=== PATIENT | male | born 1990 | race Caucasian/White ===

== ENCOUNTER 2025-02-01 21:08 | Emergency (ER) | payer MEDICAID, SELFPAY ==
--- OUTSIDE RECORDS SUMMARY | 2023-03-20 20:01 | XMS_ITS | Continuity of Care Document ---
Author Organization [facility] Address [address] [place] [address] Phone Care Team Providers Care Courtesy Van Driver Name Role Phone Niharika Alegre Unavailable Unavailable Allergies, Adverse Reactions, Alerts Substance Reaction Status Criticality Sulfa (Sulfonamide Antibiotics) Active No Information Penicillins Active No Information Medications Medication Instructions Dosage Effective Dates (start - stop) Status Comments ibuprofen 800 mg tablet take 1 tablet by oral route 3 times daily as needed with food - Active cetirizine 10 mg tablet take 1 tablet by mouth every daily at night - Active Tessalon Perles 100 mg capsule take 1 capsule by oral route 3 times every day as needed for cough - Active ProAir HFA 90 mcg/actuation aerosol inhaler inhale 2 puff by inhalation route every 4 - 6 hours as needed - Active Problems Condition Type Effective Dates (start - stop) Clini zack Status Comments No Known Problems Procedures Procedure Date Acute Detox Director Of Safety Acute Detox Director Of Safety ROUTINE VENIPUNCTURE Acute Detox Director Of Safety Advance Directives Directive Yes / No Effective Date File Name No Information Encounters Encounter Description Practice Location Reason(s) For Visit Diagnoses Date Provider Providers Copied on Encounter [facility], [address] [place] [address], [id number] , tel: [phone] [facility] Detox Cocaine dependence with withdrawalSedative, hypnotic or anxiolytic dependence with withdrawal, uncomplicatedNicotin e dependence, cigarettes, uncomplicatedOther seizures 3 Codey Bundy. [address], [place], [id number] , [place]. tel: [phone] [facility], [address], [place], [id number] , tel: [phone] [facility] Detox substance abuse (chief complaint) Cocaine dependence with withdrawalSedative, hypnotic or anxiolytic dependence with withdrawal, uncomplicatedNicotin e dependence, cigarettes, uncomplicatedOther seizures Sep-2 3 Quinten Moses. [address] [place], [address], [place]. tel: [phone] [facility], [address] [place] [address], [id number] , [place] tel: [phone] [facility] Detox Cocaine dependence with withdrawalSedative, hypnotic or anxiolytic dependence with withdrawal, uncomplicated 3 Quinten Moses. [address] [place], [address], [place]. tel: [phone] [facility], [address] [place] [address], [id number] , tel: [phone] [facility] Detox Sedative, hypnotic or anxiolytic dependence with withdrawal, uncomplicatedCocaine dependence with withdrawalOpioid dependence with withdrawal Feb- 3 Codey Bundy. [address] [place] [address], [id number] , . tel: [phone] [facility], [address] [place] [address], [id number] , tel: [phone] [facility] bronchitis (chief complaint)H BALBIR (chief complaint) Body mass index (BMI) 21.0-21.9, adultBronchitisHisto ry of intravenous drug abuseSmoker unmotivated to quit 8-201 8 Vanita Chen. [address] [place] [address], [id number] , . tel:+ [phone] Family History Family Member Type Diagnosis Age At Onset Father Problem (finding) Back issues Half sister (P) Problem (finding) Alive and well Mother Problem (finding) Scleraderma Sister Problem (finding) Alive and well Father Problem (finding) COPD Father Problem (finding) Alive and well Payers Payer name Insurance type Covered alliance party ID Micah browning(s) WILLIAM Donald Medicaid [id number] Social History Type Description Quantity Date Captured Comments Alcohol Use Details No Caffeine Use Details Unknown Tobacco Use Status Smoking Status No Information Sex Male Sexual Orientation Straight or heterosexual Gender Identity Male Vital Signs Date / Time: Height Weight BMI Pulse Rate Blood Pressure Temperature Respiratory Rate Body Surface Area Head Circumference Head Circ. Percentile Wt./Ariel. Percentile BMI percentile Pulse Ox Inhaled Ox 12:00 AM 80 /min 90/62 mm[Hg] 98.50 F 16 /min 100 % 4:00 AM 66 /min 94/62 mm[Hg] 98.20 F 16 /min 99 % 8:00 AM 69 /min 104/66 mm[Hg] 97.80 F 16 /min 99 % 21 % 12:00 PM 90 /min 110/70 mm[Hg] 98.60 F 16 /min 99 % Chief Complaint And Reason For Visit No Information Reason For Referral Reason For Referral No Information Plan Of Treatment Date Type Action Status Goal Tdap Vaccine. Due on 2022 due Goal PRAPARE ASSESSMENT. Due on due Goal Tdap. Due on due Goal RLP. Due on due Goal Influenza vaccine. Due on due Goal Depression screening. Due on due Goal Hep A. Due on du e Goal PRAPARE ASSESSMENT. Due on due Goal RLP. Due on due Goal Tdap Vaccine. Due on 2022 due Goal Tdap. Due on due Goal Influenza vaccine. Due on Se due Goal Depression screening. Due on due Goal RLP. Due on due Goal Influenza vaccine. Due on Se due Goal Depression screening. Due on due Goal Hep A. Due on du e Goal Tdap Vaccine. Due on 2022 due Goal PRAPARE ASSESSMENT. Due on S ep due Goal Tdap. Due on due Goal PRAPARE ASSESSMENT. Due on S ep due Goal Hep A. Due on du e Goal RLP. Due on due Goal Tdap Vaccine. Due on 2022 due Goal Tdap. Due on due Goal Influenza vaccine. Due on Se due Goal Depression screening. Due on due Goal Dietary management education , guidance, and counseling completed Goal Tobacco cessation counseling completed History Of Present Illness Encounter Date Complaint History Of Prese nt Illness substance abuse The symptoms are reported as being moderate. The symptoms occur constantly. He states the symptoms are acute and are of new onset. AoD Assessment reviewed. Client reports using 1 gram for Cocaine daily via incineration concurrent with 1.5mg Klonipin daily with HUMERA Yesterday. bronchitis The patient desc ribes the cough as hacking, moist and persistent. Associated symptoms include cough, fatigue, hoarseness, nasal congestion, post-nasal drainage, sinus pressure and sore throat. Pertinent negatives include fever. Additional information: Patient was in the ER over the weekend and diagnosed with Bronchitis. NDilts RMAHACKER- Noted above. Patient states was diagnosed with Bronchitis in ER over weekend, got a breathing treatment and cough medicine in e ER and sent home with inhaler and tessalon pearles. VANITA He lives at [facility], will be leaving next month. He is requesting Hep C testing as he has a history of IV drug use. He was tested in retirement but was never told any results. He is a current smoker. Has history of seasonal allergies and bronchitis. He states he is feeling better today than he did early in the week and last week. He mentions ongoing right knee pain. He was on percocet in the past, he does not want that but is asking for mobic. He has been taking ibuprofen 600-800mg maybe twice daily. Will order ibuprofen 800mg. May consider mobic in the future.Labs obtained in R arm on second attempt. [facility] and [facility] form faxed as directed to [phone], confirmation received. Patient states he thinks he may be getting out of [facility] in approx 1 month, informed him if he is welcome to continue services here but he thinks he will move back to [place]. -Kin CHARLES Functional Status Date Functional Assessmen t No Information Instructions Date Instruction Additional Infor mation Encourage PO fluids - Related to Sedative, hypnotic or anxiolytic dependence with withdrawal, uncomplicated Giving encouragement to exercise Related to Body mass index (BMI) 21.0-21.9, adult Dietary management e ducation, guidance, and counseling Related to Body mass index (BMI) 21.0-21.9, adult Assessments Type Assessment Date assessment Cocaine dependence with withdraw al assessment Sedative, hypnotic o r anxiolytic dependence with withdrawal, uncomplicated assessment Nicotine dependence, cigarettes, uncomplicated assessment Other seizures Patient Care Teams Name Effective Dates (start - stop) Status Members No Information
--- OUTSIDE RECORDS SUMMARY | 2023-10-06 10:30 | XMS_ITS ---
Author Organization [facility] Address [address] [place] [address] Care Team Providers Care Director Hydrogen Storage Engineering Name Role Phone Michelle Noble Primary Care Provider [phone] Allergies Allergen (clinical drug ingredient) Drug/Non Drug Allergy documented on EMR Reaction Allergy Type Onset Date Status buspirone busPIRone HCl psychomotor agitation Drug Allergy Active mirtazapine Mirtazapine Restless Legs Drug Allergy Active Penicillin Unknown Drug Allergy Active Substance with sulfonamide structure and antibacterial mechanism of action (substance) Sulfa Antibiotics Unknown Drug Allergy Active REASON FOR VISIT Patient is here today for a 6 week medication follow up and Aristada injection. He has brought his medication with him. JESSICA Medications Medication SIG (Take, Route, Frequency, Duration) Notes Start Date End Date Status Suboxone 8-2 MG 1 film under the tongue and allow to dissolve Sublingual Once a day Active Pantoprazole Sodium 40 MG 1 tablet Orally Once a day Active chlorproMAZINE HCl 10 MG 2 tabs tonight, then increase by 1 tab per night up to 50mg Orally as directed 02/23/2023 Not-Taking SEROquel 100 MG 1 tablet daily at 7 pm and 1 tablet daily at bedtime Orally Once a day 06/05/2023 Active Aristada 882 MG/3.2ML INJECT 1 DOSE INTRAMUSCULARLY ONCE EVERY MONTH - EVERY 30 DAYS Active Meloxicam 15 MG 1 tablet Orally kerry y PRN Active [place] Carbonate 300 MG 1 cap twice daily x 5 days then 1 cap three times daily Orally as directed; Duration: 30 days BEGIN AFTER BEING NOTIFIED BY OFFICE THAT LABS ARE NORMAL 06/08/2023 Not-Taking Divalproex Sodium ER 500 MG Take 1 tablet by mouth twice daily Orally Not-Taking Social History Tobacco Use: Social History Observation Description Date Details (start date - stop date) Never Smoker NA - NA Sex Assigned At : Social History Observation Description Sex Assigned At Male Tobacco Screen: Question Answer Notes Are you a: current smoker How often do you smoke cigarettes? every day How many cigarettes a day do you smoke? -20 Are you interested in quitting? Not ready to catalina t Alcohol Screening: Question Answer Notes Did you have a drink containing alcohol in the p ast year? No Points 0 Interpretation Negative Depression Screening (PHQ-9): Question Answer Notes Little interest or pleasure in doing things Nearly every day Feeling down, depressed, or hopeless Nearly ever y day Trouble falling or staying a sleep, or sleeping too much Nearly every day Feeling tired or having little energy Nearly checo ry day Poor appetite or overeating Nearly every day Feeling bad about yourself-o r that you are a failure or have let yourself or your family down Nearly every day Trouble concentrating on thi ngs, such as reading the newspaper or watching television Nearly every day Moving or speaking so slowly that other people could have noticed. Or the opposite being so fidgety or restless that you have been moving around a lot more than usual Nearly every day Thoughts that you would be b stu off , or of hurting yourself in some way Several days(Consider Suicide Assessment Risk) Total Score 25 Intepretation Severe Depression Tobacco Control (Standard) Question Answer Notes Tobacco use: Nonsmoker Encounters Encounter Location Date Provider Diagnosis [facility] [address] [place] [address] 10/06/2023 Michelle Noble Plan Of Treatment No Information Progress Notes * DORINDA CALDWELL JrDOB:1989 (34 yo M)Acc No.[id number]:10/06/2023 Behavioral Health Patient: DORINDA VILLA Jr Appointment Provider: Orlin Noble :1990 A ge:33 Y S ex:Male Date:10/06/2023 Address:[address] [place], [place] [id number] Subjective: * Chief Complaints: * 1 . Patient is here today for a 6 week medication follow up and Aristada injection. He has brought his medication with him. JESSICA. * Medical History: T hyroid disease, Bipolar, Restless Leg Syndrome, CVA, 2013.. * Surgical History: k nee surgery x 2 , partial thyroidectomy . * Hospitalization/Major Diagno stic Procedure: Bianca bernal Past Hospitalization. * Family History: M other: depression, anxiety. 1 sister(s) - healthy. . * Social History: G eneral: T obacco Screen A re you a: c urrent smoker H ow often do you smoke cigarettes? e very day H ow many cigarettes a day do you smoke? 1 1-20 A re you interested in quitting? N ot ready to quit Alcohol Screening D id you have a drink containing alcohol in the past year? N o P oints 0 I nterpretation N egative Depression Screening (PHQ-9) L ittle interest or pleasure in doing things?Nearly every day F eeling down, depressed, or hopeless N early every day T rouble falling or staying asleep, or sleeping too much N early every day F eeling tired or having little energy N early every day P oor appetite or overeating N early every day F eeling bad about yourself-or that you are a failure or have let yourself or your family down N early every day T rouble concentrating on things, such as reading the newspaper or watching television N early every day M oving or speaking so slowly that other people could have noticed. Or the opposite being so fidgety or restless that you have been moving around a lot more than usual N early every day T houghts that you would be better off , or of hurting yourself in some way S everal days(Consider Suicide Assessment Risk) T otal Score 2 5 I ntepretation S evere Depression Transition of Care E R/UC/hospital since last office visit? N o Behaviors affecting health P oor/Risky Behaviors: Bianca bernal- Substance abuse/mental health issues of patient/family P atient - O ther has medical marijuana card Social/Support Concerns P atient: Y es Ability to understand healthcare/treatment P atient: G ood T obacco Use: T obacco Control (Standard) T obacco use: N onsmoker * Medications: T aking Pantoprazole Sodium 40 MG Tablet Delayed Release 1 tablet Orally Once a day , Taking Suboxone 8-2 MG Film 1 film under the tongue and allow to dissolve Sublingual Once a day , Taking Meloxicam 15 MG Tablet 1 tablet Orally daily PRN , Taking SEROquel 100 MG Tablet 1 tablet daily at 7 pm and 1 tablet daily at bedtime Orally Once a day , Taking Aristada 882 MG/3.2ML Prefilled Syringe INJECT 1 DOSE INTRAMUSCULARLY ONCE EVERY MONTH - EVERY 30 DAYS , Not-Taking/PRN [place] Carbonate 300 MG Capsule 1 cap twice daily x 5 days then 1 cap three times daily Orally as directed , Notes to Pharmacist: BEGIN AFTER BEING NOTIFIED BY OFFICE THAT LABS ARE NORMAL, Not-Taking/PRN Divalproex Sodium ER 500 MG Tablet Extended Release 24 Hour Take 1 tablet by mouth twice daily Orally , Not-Taking/PRN chlorproMAZINE HCl 10 MG Tablet 2 tabs tonight, then increase by 1 tab per night up to 50mg Orally as directed * Allergies: P enicillin: Allergy, Sulfa Antibiotics: Allergy, busPIRone HCl: psychomotor agitation - Side Effects - Criticality High, Mirtazapine: Restless Legs - Side Effects - Criticality Low. Objective: * Vitals: Assessment: Plan: * Treatment: * Images: * Electronic signature of ANUSHA Lua FNP on 02/01/2025 at 09:16 PM EDT Sign off status: Pending * Appointment Provider: Orlin Noble Date: 0 10/06/2023 Generated for Sabine milan/Calista/Chelsi on: 0 02/01/2025 09:16 PM EDT
[2025-02-01 21:16] VITALS: BP 117/81; PULSE 65; TEMP 36.9; O2SAT 100; BMI 21.3
--- OUTSIDE RECORDS SUMMARY | 2025-02-01 21:16 | XMS_ITS | Clinical Summary ---
Author Organization [facility] Address [address] [phone] Phone Care Team Providers Care Medtronics Technician Name Role Phone Cem Hampton MD Primary Care Provider Social History Tobacco Use Types Packs/Day Years Used Date Smoking Tobacco: Never Assessed Sex and Gender Information Value Date Recorded Sex Assigned at Not on file Legal Sex Male 5:21 AM EST Gender Identity Not on file Sexual Orientation Not on file Plan of Treatment Not on file Care Teams Medtronics Technician Relationship Specialty Start Date End Date Cem Hampton MD PCP - General 11/16/18
--- OUTSIDE RECORDS SUMMARY | 2025-02-01 21:16 | XMS_ITS | Encounter Summary ---
Author Organization [facility] [employer] s tem Address [id number] [address] [place] [address] Care Team Providers Care Director Of Customer Service Name Role Phone Hugo Zendejas Primary Care Provider [phone] Encounter Details Date Type Department Care Team (Late st Contact Info) Description 12/18/2023 Orders Only [facility] Internal Medicine - Family Medicine [address] [place] [id number] External, Scanning Provider Social History Tobacco Use Types Packs/Day Years Used Date Smoking Tobacco: Every Day Cigarettes 1 12 Smokeless Tobacco: Never Alcohol Use Standard Drinks/Week Comments No 0 (1 standard drink = 0.6 oz pur e alcohol) AUDIT-C Answer Date Recorded Frequency of Alcohol Consumption Never 03/24/2018 Average Number of Drinks Not on file 018 Frequency of Binge Drinking Not on file 02/28 PHQ-2 Answer Date Recorded Total Score 0 10/28/2023 Childcare Answer Date Recorded Childcare Unknown 12/01/2018 Employment Answer Date Recorded Employment Unknown 12/01/2018 Hunger Screening Answer Date Recorded Within the past 12 months we worried whether our food would run out before we got money to buy more. Never True 12/15/2023 Within the past 12 months th e food we bought just didn't last and we didn't have money to get more. Never True 12/15/2023 Purpose - Life Answer Date Recorded Purpose and direction in life Unknown Sex and Gender Information Value Date Recorded Sex Assigned at Male 07/10/2022 4:43 PM EST Legal Sex Male 11:40 AM EDT Gender Identity Male 07/10/2022 4:43 PM EST Sexual Orientation Straight 07/10/2022 4: 43 PM EST documented as of this encounter Plan of Treatment Not on file documented as of this encounter Procedures Procedure Name Priority Date/Time Associated Diagnosis Comments NERVE CONDUCTION STUDY Routine 12/17/2023 12:32 PM EDT documented in this encounter Visit Diagnoses Not on filedocumented in this encounter Additional Health Concerns Assessment Noted Time PHQ-9 Depression Total Score: 0 10/28/19 1:49 PM EDT A Body Mass Index follow-up plan has been documented for the patient 02/02/2020 3:18 PM EDT documented as of this encounter Care Teams Director Of Customer Service Relationship Specialty Start Date End Date Hugo Zendejas DO [address] [place] [address] PCP - General Internal Medicine 04/14/23 documented as of this encounter
--- OUTSIDE RECORDS SUMMARY | 2025-02-01 21:16 | XMS_ITS | Encounter Summary ---
Author Organization [employer] s tem Address [id number] [address] [place] [address] Care Team Providers Care Counseling Center Manager Name Role Phone Hugo Zendejas Primary Care Provider [phone] Encounter Details Date Type Department Care Team (Late st Contact Info) Description 10/07/2024 Telephone [facility] Internal [facility] - Family Medicine [address] [place] [id number] Lee Frazier CMA Social History Tobacco Use Types Packs/Day Years [...] PHQ-2 Answer Date Recorded Total Score 0 04/07/2024 Childcare Answer Date Recorded Childcare Unknown 12/01/2018 Employment Answer Date Recorded Employment Unknown 12/01/2018 Hunger Screening Answer Date Recorded Within the past 12 months we worried whether our food would run out before we got money to buy more. Never True 04/07/2024 Within the past 12 months th e food we bought just didn't last and we didn't have money to get more. Never True 04/07/2024 Purpose - Life Answer Date Recorded Purpose and direction in life Unknown Sex and Gender Information Value Date Recorded Sex Assigned at Male 07/10/2022 4:43 PM EST Legal Sex Male 11:40 AM EDT Gender Identity Male 07/10/2022 4:43 PM EST Sexual Orientation Straight 07/10/2022 4: 43 PM EST documented as of this encounter Miscellaneous Notes * Telephone Encounter - Lee Frazier CMA - 10/07/2024 1:29 PM EDT Back pain recheck and Neuropathy recheck documented in this encounter Plan of Treatment Not on file documented as of this encounter Visit Diagnoses Not on filedocumented in this encounter Additional Health Concerns Assessment Noted Time PHQ-9 Depression Total Score: 0 04/07/20 24 3:00 PM EDT A Body Mass Index follow-up plan has been documented for the patient 02/02/2020 3:18 PM EDT documented as of this encounter Care Teams Counseling Center Manager Relationship Specialty Start Date End Date Hugo Zendejas DO [address] [place] [address] PCP - General Internal Medicine 04/14/23 documented as of this encounter
--- OUTSIDE RECORDS SUMMARY | 2025-02-01 21:16 | XMS_ITS | Encounter Summary ---
Author Organization [employer] s tem Address [id number] [address] [place] [address] Care Team Providers Care Lining Maker Hand Name Role Phone Hugo Zendejas Primary Care Provider [phone] Encounter Details Date Type Department Care Team (Late st Contact Info) Description 10/21[facility] [address] [place] [phone] Lee Frazier CMA Social History Tobacco Use [...] Telephone Encounter - Lee Frazier CMA - 10/21/2024 12:32 PM EDT I called pt for a recheck back pain and neuropathy. documented in this encounter Plan of Treatment Not on file documented as of this encounter Visit Diagnoses Not on filedocumented in this encounter Additional Health Concerns Assessment Noted Time PHQ-9 Depression Total Score: 0 04/07/20 24 3:00 PM EDT A Body Mass Index follow-up plan has been documented for the patient 02/02/2020 3:18 PM EDT documented as of this encounter Care Teams Lining Maker Hand Relationship Specialty Start Date End Date Hugo Zendejas DO [address] [place] [address] PCP - General Internal Medicine 04/14/23 documented as of this encounter
--- OUTSIDE RECORDS SUMMARY | 2025-02-01 21:16 | XMS_ITS | Clinical Summary ---
Author Organization [facility] Address [address] [place] [address] Care Team Providers Care Rebar Bender Name Role Phone Hugo Zendejas MD Primary Care Provider [phone] Allergies Active Allergy Reactions Criticality Noted Date Comments Penicillins Anaphylaxis,Hives,Un kno wn High 12/19/2017 Sulfa Antibiotics Anaphylaxis,Unknown High 5 Other Reaction(s): Other (See Comments) Medications OLANZapine (ZyPREXA) 7.5 MG tablet 1 (one) time each day at the same time Active Social History Tobacco Use Types Packs/Day Years Used Date Smoking Tobacco: Never Assessed Sex and Gender Information Value Date Recorded Sex Assigned at Not on file Legal Sex Male 9:31 PM EDT Gender Identity Not on file Sexual Orientation Not on file Last Filed Vital Signs Vital Sign Reading Time Taken Comments Blood Pressure 122/70 07/11/2020 3:39 AM EST Pulse - - Temperature - - Respiratory Rate - - Oxygen Saturation - - Inhaled Oxygen Concentration - - Weight 81.6 kg (180 lb) 07/11/2020 3:39 AM EST Height 172.7 cm (5' 8 ) 04/24/2020 12:00 PM EDT Body Mass Index 27.37 04/24/2020 12:00 PM EDT Plan of Treatment Not on file Insurance [employer] [place] Care Teams Rebar Bender Relationship Specialty Start Date End Date Hugo Zendejas MD PCP - General Internal Medicine 12/09/23
--- OUTSIDE RECORDS SUMMARY | 2025-02-01 21:16 | XMS_ITS | Patient Health Record ---
Author Organization [employer] Address [address] [place] [address] Care Team Providers Care Bleaching Supervisor Name Role Phone Michelle Noble Primary Care Provider Allergies Allergen (clinical drug ingredient) Drug/Non Drug Allergy documented on EMR Reaction Allergy Type Onset Date Status buspirone busPIRone HCl psychomotor agitation Drug Allergy Active mirtazapine Mirtazapine Restless Legs Drug Allergy Active Penicillin Unknown Drug Allergy Active Substance with sulfonamide structure and antibacterial mechanism of action (substance) Sulfa Antibiotics Unknown Drug Allergy Active Reason For Referral No Information Medications Medication SIG (Take, Route, Frequency, Duration) Notes Start Date End Date Status Suboxone 8-2 MG 1 film under the tongue and allow to dissolve Sublingual Once a day Active Meloxicam 15 MG 1 tablet Orally kerry y PRN Active Pantoprazole Sodium 40 MG 1 tablet Orally Once a day Active chlorproMAZINE HCl 10 MG 2 tabs tonight, then increase by 1 tab per night up to 50mg Orally as directed 02/23/2023 Not-[address] [facility] [place] Carbonate 300 MG 1 cap twice daily x 5 days then 1 cap three times daily Orally as directed; Duration: 30 days BEGIN AFTER BEING NOTIFIED BY OFFICE THAT LABS ARE NORMAL 06/08/2023 Not-Taking Divalproex Sodium ER 500 MG Take 1 tablet by mouth twice daily Orally Not-Taking SEROquel 100 MG 1 tablet daily at 7 pm and 1 tablet daily at bedtime Orally Once a day 06/05/2023 Active Aristada 882 MG/3.2ML INJECT 1 DOSE INTRAMUSCULARLY ONCE EVERY MONTH - EVERY 30 DAYS Active Social History Tobacco Use: Social History Observation Description Date Details (start date - stop date) Never Smoker NA - NA Sex Assigned At : Social History Observation Description Sex Assigned At Male Tobacco Screen: Question Answer Notes Are you a: current smoker How often do you smoke cigarettes? every day How many cigarettes a day do you smoke? 11-20 Are you interested in quitting? 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 (I69.319) Active confirmed Problem Generalized anxiety disorder (24452427) Anxiety, generalized (F41.1) Active confirmed Plan Of Treatment No Information Insurance Providers Payer Name Payer Address Payer Phone Subscriber Number Group Number Insured Name Patient Relationship to Insured Coverage Start Date Coverage End Date [facility] [address] [place] [address] [id number] DORINDA CALDWELL Self - patient is the insured 3 [employer] [facility] [address] [place] [address] [id number] DORINDA CALDWELL Self - patient is the insured 3 [employer] [facility] Medicaid-t ermed 22 [address] [place] [address] [id number] DORINDA CALDWELL Self - patient is the insured 1 3 [employer] MEDICAID [employer] after [employer]AMOUNT- termed 22 [address] [place] [address] [id number] DORINDA CALDWELL Self - patient is the insured 1 3 [employer] [place] Medicaid [address] [place] [address] [id number] DORINDA CALDWELL Self - patient is the insured 3 [employer] [facility] [address] [place] [address] [id number] DORINDA CALDWELL Self - patient is the insured 3 Medical (General) History Medical History History ICD Code thyroid disease bipolar Restless Leg Syndrome CVA, 2013. Surgical History Surgery Date(Month/Year) knee surgery x 2 partial thyroidectomy
--- OUTSIDE RECORDS SUMMARY | 2025-02-01 21:16 | XMS_ITS | Encounter Summary ---
Author Organization [facility] tem Address [id number] [address] [place] [address] Care Team Providers Care Jailkeeper Name Role Phone Hugo Zendejas DO Primary Care Provider [phone] Encounter Details Date Type Department Care Team (Late st Contact Info) Description 12/10/2023 Orders Only [facility] - Family Medicine [address] [place] [address] Hugo Zendejas DO [address] [place] [address] Peripheral polyneuropathy; Lumbar radiculopathy Social History Tobacco Use Types Packs/Day Years [...] got money to buy more. Never True 10/28/2023 Within the past 12 months th e food we bought just didn't last and we didn't have money to get more. Never True 10/28/2023 Purpose - Life Answer Date Recorded Purpose [...] Procedure Name Priority Date/Time Associated Diagnosis Comments EMG WITH NCV Routine 12/09/2023 1:09 PM EDT Peripheral polyneuropathy Lumbar radiculopathy documented in this encounter Results * EMG (12/09/2023 1:09 PM EDT) us Hugo Zendejas DO NEUROLOGY ORDERABLES Final Resul t MANUALLY TRANSCRIBED RESULTS documented in this encounter Visit Diagnoses Diagnosis Peripheral polyneuropathy Lumbar radiculopathy Thoracic or lumbosacral neuritis or radiculitis, unspecified documented in this encounter Additional Health Concerns Assessment Noted Time PHQ-9 Depression Total Score: 0 10/28/19 24 1:49 PM EDT A Body Mass Index follow-up plan has been documented for the patient 02/02/2020 3:18 PM EDT documented as of this encounter Care Teams Jailkeeper Relationship Specialty Start Date End Date Hugo Zendejas DO [address] [id number] PCP - General Internal Medicine 04/14/23 documented as of this encounter
--- OUTSIDE RECORDS SUMMARY | 2025-02-01 21:16 | XMS_ITS | Encounter Summary ---
Author [facility] Address [id number] [address] [place] [address] Care Team Providers Care Yard Loader Operator Name Role Phone Hugo Zendejas DO Primary Care Provider [phone] Reason for Referral * Diagnostic Imaging (Routine) - Closed Specialty Diagnoses / Procedures Referred By Sotero samayoa Referred To Contact Radiology Diagnoses Recent unexplained weight loss Procedures CT abdomen and pelvis with contrast Hugo Zendejas DO [address] [place] [address] Phone: tel: fax: Referral ID Status Reason Start Date Expiration Date Visits Re quested Visits Authorized [id number] Closed 04/16/2023 04/15/2024 1 1 Encounter Details Date Type Department Care Team (Late st Contact Info) Description 04/16/2023 Orders Only [facility] - Family Medicine [address] [place] [address] Hugo Zendejas DO [address] [place] [address] Recent unexplained weight loss (Primary Dx); Pancreatic insufficiency Social History Tobacco Use Types Packs/Day Years Used Date Smoking Tobacco: Every Day Cigarettes Smokeless Tobacco: Never Alcohol Use Standard Drinks/Week Comments No 0 (1 standard drink = 0.6 oz pur e alcohol) AUDIT-C Answer Date Recorded Frequency of Alcohol Consumption Never 03/24/2018 Average Number of Drinks Not on file 018 Frequency of Binge Drinking Not on file 02/28 PHQ-2 Answer Date Recorded Total Score 23 04/14/2023 Childcare Answer Date Recorded Childcare Unknown 12/01/2018 Employment Answer Date Recorded Employment Unknown 12/01/2018 Purpose - Life Answer Date Recorded Purpose [...] on file documented as of this encounter Results * Pancreatic elastase, fecal (05/18/2023 12:30 PM EST) Pancreat elastase st See Below 05/20/2023 9:35 PM EST [facility] Comment: NOTE TEST RESULT FLAG UNIT REF.RANGE Elastase-1 Concentration >800 ug/g >=200 Interpretation: <100 ug/g: Severe Exocrine Pancreatic Insufficiency 100-199 ug/g: Mild to Moderate Exocrine Pancreatic Insufficiency >=200 ug/g: Normal Elastase Interpretation Normal Normal Test Performed By: [facility] [address] [place] [address] Pharmacy Manager: Johnson Cortes III, M.D. [facility] #[id number]^ Feces / Unknown 05/18/2023 1 2:30 PM EST 05/18/2023 9:03 PM EST us Hugo Zendejas DO BODY FLUIDS AND STOOLS ORDERABLE S Final Result [address], [facility] [place] [address] * CT abdomen and pelvis with contrast (05/06/2023 3:43 PM EST) Anatomical Region Laterality Modality Body, Abdomen, Body Covera N/A Compu russ Tomography 05/07/2023 5:48 AM EST Narrative 05/07/2023 5:50 AM EST History: Unintentional weight loss Technique: Contiguous axial images through the abdomen pelvis were obtained following the administration of intravenous contrast material. Automated exposure control was utilized. Comparison: 02/27/2020 Findings: There is no evidence of any hepatic, splenic, adrenal renal, pancreatic, or gallbladder abnormalities. No abdominal or retroperitoneal masses or adenopathy are seen. No pelvic masses, adenopathy, or fluid collections are identified. No acute osseous abdomen as are seen. Limited images of the lung bases are unremarkable. Impression: Normal CT abdomen and pelvis. All CT scans at this facility use dose modulation, iterative reconstruction, and/or weight based dosing when appropriate to reduce radiation dose to as low as reasonably achievable Finalized by Cem Blackwell MD on 05/07/2023 5:50 AM Procedure Note Cem Blackwell MD - 05/07/2023 History: Unintentional weight loss Technique: Contiguous axial images through the abdomen pelvis wereobtained following the administration of intravenous contrast material.Automated exposure control was utilized. Comparison: 02/27/2020 Findings: There is no evidence of any hepatic, splenic, adrenal renal,pancreatic, or gallbladder abnormalities. No abdominal or retroperitonealmasses or adenopathy are seen. No pelvic masses, adenopathy, or fluidcollections are identified. No acute osseous abdomen as are seen. Limited images of the lung bases are unremarkable. Impression: Normal CT abdomen and pelvis. All CT scans at this facility use dose modulation, iterativereconstruction, and/or weight based dosing when appropriate to reduceradiation dose to as low as reasonably achievable Finalized by Cem Blackwell MD on 05/07/2023 5:50 AM Hugo Zendejas DO [facility] CT ORDERABLES Final Result documented in this encounter Visit Diagnoses Diagnosis Recent unexplained weight loss- Primary Pancreatic insufficiency Other specified disease of pancreas Recent unexplained weight loss documented in this encounter Additional Health Concerns Assessment Noted Time PHQ-9 Depression Total Score: 23 023 11:54 AM EDT A Body Mass Index follow-up plan has been documented for the patient 02/02/2020 3:18 PM EDT documented as of this encounter Care Teams Yard Loader Operator Relationship Specialty Start Date End Date Hugo Zendejas DO [address] [id number] PCP - General Internal Medicine 04/14/23 documented as of this encounter
--- OUTSIDE RECORDS SUMMARY | 2025-02-01 21:16 | XMS_ITS | Encounter Summary ---
Author Organization [facility] tem Address [id number] [address] [place] [address] Care Team Providers Care Crewman Main Battle Tank Name Role Phone Hugo Zendejas DO Primary Care Provider [phone] Encounter Details Date Type Department Care Team (Late st Contact Info) Description 04/15/2023 Orders Only [facility] - Family Medicine [address] [place] [address] Hugo Zendejas DO [address] [place] [address] Hypercalcemia (Primary Dx) Social History Tobacco Use Types Packs/Day Years [...] documented as of this encounter Visit Diagnoses Diagnosis Hypercalcemia- Primary documented in this encounter Additional Health Concerns Assessment Noted Time PHQ-9 Depression Total Score: 23 023 11:54 AM EDT A Body Mass Index follow-up plan has been documented for the patient 02/02/2020 3:18 PM EDT documented as of this encounter Care Teams Crewman Main Battle Tank Relationship Specialty Start Date End Date Hugo Zendejas DO [address] [place] [address] PCP - General Internal Medicine 04/14/23 documented as of this encounter
--- OUTSIDE RECORDS SUMMARY | 2025-02-01 21:16 | XMS_ITS | Encounter Summary ---
Author Organization [facility] [facility] tem Address [facility][id number] [address] [place] [address] Care Team Providers Care Loss Prevention Guard Name Role Phone Hugo Zendejas Primary Care Provider [phone] Encounter Details Date Type Department Care Team (Late st Contact Info) Description 07/05/2020 Orders Only [facility] [address] [place] [phone] Rosmery Posadas, TAX DIRECTOR-[facility] [address] [place] [address] Social History Tobacco Use Types Packs/Day Years [...] 02/28 PHQ-2 Answer Date Recorded Total Score 27 02/27/2020 Childcare Answer Date Recorded Childcare Unknown 12/01/2018 Employment Answer Date Recorded Employment Unknown 12/01/2018 Sex and Gender Information Value Date Recorded [...] Assessment Noted Time PHQ-9 Depression Total Score: 27 020 4:00 PM EDT A Body Mass Index follow-up plan has been documented for the patient 02/02/2020 3:18 PM EDT documented as of this encounter Care Teams Loss Prevention Guard Relationship Specialty Start Date End Date Hugo Zendejas DO [address] [place] [address] PCP - General Internal Medicine 04/14/23 documented as of this encounter
--- OUTSIDE RECORDS SUMMARY | 2025-02-01 21:16 | XMS_ITS | Encounter Summary ---
Author Organization [employer] tem Address [facility][id number] [address] [place] [address] Care Team Providers Care Adjunct Physical Education Instructor Name Role Phone Hugo Zendejas DO Primary Care Provider [phone] Reason for Visit * Reason Comments Med Refill Encounter Details Date Type Department Care Team (Late st Contact Info) Description 12/28/2023 Refill [facility] - Family Medicine [address] [place] [address] Hugo Zendejas DO [address] [place] [address] Vitamin D deficiency Social History Tobacco Use Types Packs/Day Years [...] encounter Miscellaneous Notes * Telephone Encounter - Hugo Zendejas DO - 12/28/2023 12:34 PM EDT No longer prescribed documented in this encounter Plan of Treatment Not on file documented as of this encounter Visit Diagnoses Diagnosis Vitamin D deficiency documented in this encounter Additional Health Concerns Assessment Noted Time PHQ-9 Depression Total Score: 0 10/28/19 24 1:49 PM EDT A Body Mass Index follow-up plan has been documented for the patient 02/02/2020 3:18 PM EDT documented as of this encounter Care Teams Adjunct Physical Education Instructor Relationship Specialty Start Date End Date Hugo Zendejas DO [address] [id number] PCP - General Internal Medicine 04/14/23 documented as of this encounter
--- OUTSIDE RECORDS SUMMARY | 2025-02-01 21:16 | XMS_ITS | Encounter Summary ---
Author Organization [facility] Address [facility][id number] [address] [place] [address] Care Team Providers Care Artifacts Conservator Name Role Phone Hugo Zendejas Primary Care Provider Reason for Visit * Reason Comments Med Refill Encounter Details Date Type Department Care Team (Late st Contact Info) Description 12/28/2018 Refill [facility] [address] [place] [phone] Rosmery Posadas, SANITARY CHEMIST-[facility] [address] [place] [address] Social History Tobacco Use Types Packs/Day Years Used Date Smoking Tobacco: Every Day Cigarettes Smokeless Tobacco: Never Alcohol Use Standard Drinks/Week Comments No 0 (1 standard drink = 0.6 oz pur e alcohol) AUDIT-C Answer Date Recorded Frequency of Alcohol Consumption Never 03/24/2018 Average Number of Drinks Not on file 018 Frequency of Binge Drinking Not on file 02/28 PHQ-2 Answer Date Recorded PHQ-2 Score 0 10/20/2018 Childcare Answer Date Recorded Childcare Unknown 12/01/2018 [...] Noted Time PHQ-9 Depression Total Score: 0 10/21/19 19 2:00 PM EDT documented as of this encounter Care Teams Artifacts Conservator Relationship Specialty Start Date End Date Hugo Zendejas DO [address] [place] [address] PCP - General Internal Medicine 04/14/23 documented as of this encounter
--- OUTSIDE RECORDS SUMMARY | 2025-02-01 21:16 | XMS_ITS | Encounter Summary ---
Author Organization [employer] tem Address [id number] [address] [place] [address] Care Team Providers Care Coal Passer Name Role Phone Hugo Zendejas Primary Care Provider [phone] Encounter Details Date Type Department Care Team (Late st Contact Info) Description 09/26/2024 [facility] [address] [place] [address] Lee Frazier CMA Social History Tobacco Use [...] Telephone Encounter - Lee Frazier CMA - 09/26/2024 9:56 AM EDT ----- Message from Hugo Zendejas DO sent at 04/07/2024 6:00 PM EDT ----- Back pain recheck. Neuropathy recheck documented in this encounter Plan of Treatment Not on file documented as of this encounter Visit Diagnoses Not on filedocumented in this encounter Additional Health Concerns Assessment Noted Time PHQ-9 Depression Total Score: 0 04/07/20 3:00 PM EDT A Body Mass Index follow-up plan has been documented for the patient 02/02/2020 3:18 PM EDT documented as of this encounter Care Teams Coal Passer Relationship Specialty Start Date End Date Hugo Zendejas DO [address] [place] [address] PCP - General Internal Medicine 04/14/23 documented as of this encounter
--- OUTSIDE RECORDS SUMMARY | 2025-02-01 21:16 | XMS_ITS | Encounter Summary ---
Author Organization [facility] [employer] [facility] Address [facility][id number] [address] [place] [address] Care Team Providers Care Warp Worker Name Role Phone Hugo Zendejas Primary Care Provider [phone] Encounter Details Date Type Department Care Team (Late st Contact Info) Description 07/11/2020 Orders Only [facility] [address] [place] [address] Rosmery Posadas, POULTRY FEED SUPERVISOR-ROVING INSPECTOR [address] [place] [address] Social History Tobacco Use Types Packs/Day Years [...] documented as of this encounter Care Teams Warp Worker Relationship Specialty Start Date End Date Hugo Zendejas DO [address] [place] [address] PCP - General Internal Medicine 04/14/23 documented as of this encounter
--- OUTSIDE RECORDS SUMMARY | 2025-02-01 21:16 | XMS_ITS | Clinical Summary ---
Author Organization [employer] tem Address [id number] [address] [place] [address] Care Team Providers Care Figure Model Name Role Phone Hugo Zendejas Primary Care Provider [phone] Allergies Active Allergy Reactions Criticality Noted Date Comments Buspirone Hcl Other (See Comments) 04/06/2023 Mirtazapine Other (See Comments) 04/06/2023 Penicillin Hives 04/06/2023 Penicillins Anaphylaxis High 03/24/2018 Sulfa (Sulfonamide Antibiotics) Anaphylaxis,Other (See Comments) High 07/12/2014 Medications naloxone (NARCAN) 4 mg/actuation spray,non-aeros ol nasal sprayIndication s:Opioid abuse, in remission ([facility]) Administer 1 spray (4 mg total) into alternating nostrils as needed for opioid reversal. 4 Active meloxicam (MOBIC) 15 mg tabletIndicatio ns:Laceration of left thumb with tendon involvement, initial encounter Take 1 tablet (15 mg total) by mouth in the morning. 4 Active gabapentin (NEURONTIN) 800 mg tablet Take 1 tablet (800 mg total) by mouth. 4 Active ARISTADA 882 mg/3.2 mL suspension,exte nded rel syring injection 4 Active clonazePAM (KlonoPIN) 2 mg tablet Take 1 tablet (2 mg total) by mouth. 4 Active dextroamphetami ne-amphetamine (ADDERALL) 10 mg tablet 4 Active ergocalciferol (DRISDOL) 1,250 mcg (50,000 unit) capsule Take 1 capsule (50,000 Units total) by mouth once a week. 4 Active Active Problems Problem Noted Date Diagnosed Date Post-traumatic stress disorder, chronic 05/13/20 23 Residual cognitive deficit a s late effect of cerebrovascular accident 04/14/2023 Severe mixed bipolar I disorder without psychoti c features 04/14/2023 Insomnia 04/14/2023 Post-surgical hypothyroidism 03/30/2019 History of stroke 02/25/2019 History of seizure 02/25/2019 Generalized anxiety disorder 10/20/2018 Major depression 10/20/2018 Opioid abuse, in remission 10/20/2018 Resolved Problems Problem Noted Date Diagnosed Date Resolved Date Seizures 04/12/2019 04/14/2023 Overview (04/12/2019): current seizures Thyroid nodule 02/25/2019 03/30/2019 Cocaine abuse 10/20/2018 05/08/2020 Other, mixed, or unspecified nondependent drug abuse, in remission 10/20/2018 05/08/2020 Immunizations Immunization Administration Dates Next Due DTP 12/22/1994, 1,1989,1989,1 08/02/1988 Hep B, Adolescent or Pediatric 09/06/2001,2000,02/08/2001 MMR 09/15/2000,08/02/1990 OPV 12/22/1994,11/08/1990,1989 ,1989 Td, Unspecified 01/29/2005 Tdap 10/24/2023,01/07/2019 Family History Medical History Relation Name Comments Drug abuse Father Hypertension Father Mental illness Father Scleroderma Mother Anesthesia problems Neg Hx Relation Name Status Comments Father Alive Mother Alive Social History Tobacco Use Types Packs/Day Years Used Date Smoking Tobacco: Every Day Cigarettes 1 12 Smokeless Tobacco: Never Tobacco Cessation:Ready to Q uit: Not Asked; Counseling Given: Not Answered Alcohol Use Standard Drinks/Week Comments No 0 [...] Orientation Straight 07/10/2022 4: 43 PM EST Last Filed Vital Signs Vital Sign Reading Time Taken Comments Blood Pressure 110/60 04/07/2024 3:00 PM EDT Pulse 92 04/07/2024 3:00 PM EDT Temperature 36.2 C (97.1 F) 04/07/2024 3:00 PM EDT Respiratory Rate 18 03/24/2024 4:13 PM EDT Oxygen Saturation 96% 04/07/2024 3:00 PM EDT Inhaled Oxygen Concentration - - Weight 68.5 kg (151 lb) 04/07/2024 3:00 PM EDT Height 172.7 cm (5' 8 ) 04/07/2024 3:00 PM EDT Body Mass Index 22.96 04/07/2024 3:00 PM EDT Plan of Treatment Health Maintenance Due Date Last Done Comments Tobacco Counseling 1989 Influenza Vaccine 02/27/2025 Adult BMI Screening 04/07/2025 04/07/2024 Depression Screening 04/07/2025 04/07/2024 Tobacco Screening 04/07/2025 04/07/2024 DTaP,Tdap and Td Vaccines (8 - Td or Tdap) 10/23/2033 10/24/2023, 01/07/2019, 01/29/2005, Additional history exists Medical Devices Implanted Type Area Radio Script Writer Device Identifier Shelf Expiration Date Model / Serial / Lot Fiberstitch Implant, Curved With 2 [employer] Implants; 2-0 Fiberwire Implanted:Qty: 1 on 05/08/2020 by Jason Gamboa Jr., DO at [facility] Right: Knee Arthrex 07/29/2024 [id number] / [id number] / [id number] Insurance [facility] MEDICAID Advance Directives * Full Code (Latest Code Status on File) Date Activated Date Inactivated Comments 03/21/2019 12:25 PM 03/22/2019 6:30 PM Care Teams Figure Model Relationship Specialty Start Date End Date Hugo Zendejas DO [address] [place] [address] PCP - General Internal Medicine 04/14/23
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
--- NOTE | 2025-02-01 21:29 | ECG_ITS ---
[facility] Test Date: 2025-02-01 Pat Name: DORINDA CALDWELL Department: Room: - Gender: Male Permanent [place]aver: : 1990 Requested By: [id number] Order Number: [id number] Reading MD: WALT HIGGINBOTHAM M.D. Measurements Intervals [place] Rate: 76 P: 45 [place]: 176 QRS: 73 QRSD: 110 T: 61 QT: 370 QTc: 400 Interpretive Statements 1100 Sinus rhythm 9110 normal ECG No previous ECG available for comparison Electronically Signed On 02-01-2025 22:05:43 EDT by WALT HIGGINBOTHAM M.D.
--- NOTE | 2025-02-01 21:48 | PC.NURSE ---
Denies ETOH use, but does admit to crack usage.
[2025-02-01 21:51] LABS: Hematocrit 42.9 % (42.0-54.0); Hemoglobin 14.8 g/dL (14.0-18.0); Immature Granulocytes Abs Auto 0.02 10^3/uL (0.00-0.03); Immature Granulocytes Pct Auto 0.3 % (0.0-0.5); Lymphocytes Absolute Auto 2.3 10^3/uL (1.2-3.8); Mean Corpuscular HGB Conc 34.5 g/dL (29.9-35.2); Mean Corpuscular Hemoglobin 32.7 pg (25.9-34.0); Mean Corpuscular Volume 94.7 fL (80.0-94.0); Platelet Count 290 10^3/uL (150-450); Red Blood Count 4.53 10^6/uL (4.70-6.10); White Blood Count 8.0 10^3/uL (4.0-11.0)
[2025-02-01 22:17] LABS: Salicylate 3.5 mg/dL (<=19.9)
[2025-02-01 22:18] LABS: Acetaminophen <2.0 ug/mL (10.0-30.0)
[2025-02-01 22:19] LABS: Alanine Aminotransferase 21 U/L (16-63); Albumin Globulin Ratio 1.1; Albumin Level 3.9 g/dL (3.4-5.0); Alkaline Phosphatase 80 U/L (46-116); Anion Gap 11.7; Aspartate Amino Transferase 10 U/L (15-37); Blood Urea Nitrogen 10.0 mg/dL (7.0-18.0); Calcium 9.4 mg/dL (8.5-10.1); Carbon Dioxide 29.3 mmol/L (21.0-32.0); Chloride 105 mmol/L (98-107); Estimated GFR (African America >60 (>=60 mL/min/1.73m^2); Estimated GFR (Non-African Ame >60 (>=60 mL/min/1.73m^2); Globulin 3.7 g/dL; Glucose 95 mg/dL (74-106); Potassium 4.0 mmol/L (3.5-5.1); Sodium 142 mmol/L (136-145); Total Protein 7.6 g/dL (6.4-8.2)
[2025-02-01 23:03] LABS: Cannabinoid Screen Urine NEGATIVE (NEGATIVE); Methamphetamines Screen Urine NEGATIVE (NEGATIVE); Tricyclic Antidepressant Urine NEGATIVE (NEGATIVE)
== END 2025-02-01 23:00 | disposition left against medical advice (07) ==
PROVIDERS: Emergency Provider Internal Medicine; PCP Internal Medicine
DX: F19.20 Other psychoactive substance dependence, uncomplicated (principal); Z53.29 Procedure and treatment not carried out because of patient's decision for other reasons
CPT/HCPCS: 36415; 80053; 80179; 80307; 80320; 80329; 85025; 93005; 99284